=== PATIENT | female | born 1945 | race Caucasian/White ===

== ENCOUNTER 2017-02-17 08:17 | Day surgery (SDC) | payer OTHER ==
[~2017-02-17] VITALS: Ht 170.2 cm; Wt 71.0 kg
[~2017-02-17 08:17] MED LIST: AMARYL4 MG PO; ASPIR 8181 M1 PO; ASPIR-LOW81 MG PO; ASPIR-TRIN325 M1 PO; ASPIRIN81 M1 PO; CALCIUM 600 +1 EA15 PO; CALCIUM 600 +1 EA16 PO; CALCIUM 600 +1 EAC7 PO; CALCIUM 600 +1 EAC9 PO; CARVEDILOL12.5 MG PO; CENTRUM COMPLE1 EACH PO; CINNAMON500 MG PO; CLARITIN,ALAVAR10 MG PO; COREG12.5 M1 PO; COUMADIN5 MG PO; COZAAR100 MG PO; CRESTOR20 MG PO; CRESTOR40 MG PO; CYMBALTA60 MG PO; DOXYCYCLINE HY100 MG PO; FERROUS SULFAT325 MG PO; FLONASE16 G1 BOTH NARES; HUMALOG100 UNIT/1 SC; HUMALOG100 UNIT/2 SC; IRON325 MG PO; JANTOVEN5 MG PO; KEFLEX500 MG PO; LANTUS 10100 UNITS/ SC; LANTUS 3 M100 UNITS/ PO; LANTUS 3 M100 UNITS1 SC; LANTUS100 UNIT/1 SQ; LOSARTAN POTAS100 MG PO; Lantus 3 ml Solostar SC; METFORMIN HCL500 MG PO; METRONIDAZOLE500 MG PO; MICONAZOLE PO; MYCOSTATIN5 ML PO; NOVOLOG 10100 UNITS/ SC; NOVOLOG PE100 UNITS/ SC; OMEPRAZOLE20 MG PO; ONDANSETRON HCL4 M1 PO; PANTOPRAZOLE SO20 MG PO; PROAMATINE5 MG PO; PROTONIX40 MG PO; ST. JOSEPH ASPI81 MG PO; TEKTURNA HCT PO; TRAMADOL HCL50 MG PO; VIBRAMYCIN100 MG PO; VITAMIN C1000 MG PO; VITAMIN D31000 UNI2 PO; ZESTRIL10 MG PO; ZOFRAN ODT8 MG PO; [UNRECOGNIZED DRUG - OTHER] PO
[2017-02-17 08:44] VITALS: BP 156/82
[2017-02-17 08:51] LABS: POINT-OF-CARE METER ID UU13113694
[2017-02-17] MEDS ORDERED: MOTRIN800 MG PO (10:26)
[2017-02-17 11:31] LABS: POINT-OF-CARE METER ID UU13113675
[2017-02-17 12:15] VITALS: BP 138/60
[2017-02-17 12:42] VITALS: BP 151/67
== END 2017-02-17 12:58 | disposition home or self-care (01) ==
LOC: SDC 08:17
PROVIDERS: Obstetrics & Gynecology
DX: N95.0 Postmenopausal bleeding (principal); N84.0 Polyp of corpus uteri; N95.2 Postmenopausal atrophic vaginitis; E11.319 Type 2 diabetes mellitus with unspecified diabetic retinopathy without macular edema; K21.9 Gastro-esophageal reflux disease without esophagitis; Z85.3 Personal history of malignant neoplasm of breast; I10 Essential (primary) hypertension; D50.9 Iron deficiency anemia, unspecified; E04.2 Nontoxic multinodular goiter; Z87.891 Personal history of nicotine dependence; E78.00 Pure hypercholesterolemia, unspecified; Z79.4 Long term (current) use of insulin; Z79.84 Long term (current) use of oral hypoglycemic drugs; Z83.3 Family history of diabetes mellitus; Z80.0 Family history of malignant neoplasm of digestive organs
CPT/HCPCS: 82948; 88305; J2405; J3010